=== PATIENT | female | born 1975 | race Two or more races ===

== ENCOUNTER 2018-12-29 09:55 | Outpatient (CLI) | payer OTHER | END 2018-12-29 09:56 | disposition home or self-care (01) | LOC: DI.N 09:55 | DX: Z53.9 Procedure and treatment not carried out, unspecified reason (principal) ==

== ENCOUNTER 2019-01-19 08:46 | Outpatient (CLI) | payer OTHER ==
--- NOTE | 2019-01-25 08:33 | Mammography Report ---
Reason: ROUTINE MAMMO Procedure Date: 01/19/2019 Accession Number: [id number] / [id number] Procedure: [facility] - Screening Mammo w/[facility] CPT Code: Final Report FULL RESULT: EXAM: Screening Mammo w/[facility] DATE: 01/19/2019 9:57 AM CLINICAL HISTORY: Screening encounter. History of late childbearing. TECHNIQUE: (B) - Bilateral CC and MLO views were obtained. COMPARISON: 01/18/2017 through 12/28/2015. PARENCHYMAL PATTERN: (D) - The breast(s) demonstrate(s) heterogeneously dense fibroglandular parenchyma. FINDINGS: There are coarse typically benign calcifications. There are no suspicious masses, calcifications, or areas of distortion. IMPRESSION: Benign findings. BI-RADS category 2. RECOMMENDATION: (ANNUAL) - Recommend routine annual screening mammography. BI-RADS CATEGORY: (2) - Benign Findings. STANDARD QUALIFYING STATEMENTS: 1. This examination was not reviewed with the aid of Computer-Aided Detection (CAD). 2. A negative or benign imaging report should not preclude biopsy if clinically suspicious findings are present. 3. Dense breasts may obscure an underlying neoplasm. 4. This examination was reviewed with the aid of 3D breast imaging (tomosynthesis).
== END 2019-01-19 08:47 | disposition home or self-care (01) ==
LOC: DI 08:46
DX: Z12.31 Encounter for screening mammogram for malignant neoplasm of breast (principal)
CPT/HCPCS: 77063; 77067

== ENCOUNTER 2020-11-14 08:00 | Outpatient (CLI) | payer OTHER ==
[2020-11-14 18:26] LABS: CHOL/HDL RATIO 2.9 (<4.4); CHOLESTEROL 163 mg/dL; HDL CHOLESTEROL 56 mg/dL; LDL CHOLESTEROL,CALCULATED 98 mg/dL; LDL/HDL RATIO 1.8 (<4.4); TRIGLYCERIDES 46 mg/dL; VLDL CHOLESTEROL 9 mg/dL
[2020-11-14 20:36] LABS: ESTIMATED AVERAGE GLUCOSE 111 mg/dL (70-100); HEMOGLOBIN A1c% 5.5 % (4.27-6.07)
== END 2020-11-14 23:59 | disposition home or self-care (01) ==
LOC: LAB.WCP 08:00
PROVIDERS: ATTEND Obstetrics & Gynecology
DX: Z00.00 Encounter for general adult medical examination without abnormal findings (principal)
CPT/HCPCS: 36415; 80061; 83036; 83721

== ENCOUNTER 2020-11-14 12:31 | Outpatient (CLI) | payer OTHER ==
--- NOTE | 2020-11-15 10:10 | Mammography Report ---
BILATERAL DIGITAL SCREENING MAMMOGRAM 3D/2D: 11/14/2020 CLINICAL: Routine screening. Comparison is made to exams dated: 01/19/2019 mammogram - [facility] and 07/22/2017 m ammogram - [facility]. The tissue of both breasts is heterogeneously dense. This may lower t he sensitivity of mammography. No significant masses, calcifications, or other findings are seen in either breast. There has been no significant interval change. IMPRESSION: NEGATIVE There is no mammographic evidence of malignancy. A 1 year screening mammogram is recommended. This exam was interpreted at Station ID: [id number]. NOTE: For mammograms, a report in lay terms will be sent to the patient. Approximately 15% of breast malignancies will not be visualized mammographically. In the management of a palpable breast mass, a negative mammogram must not discourage biopsy of a clinically suspicious lesion. Electronically Signed By: Yoav Ruggiero acr/penrad:11/14/2020 13:42:40 ACR BI-RADS Category 1: Negative 3341F PARENCHYMAL PATTERN: (D) - The breast(s) demonstrate(s) heterogeneously dense fibroglandular chuy ch. BI-RADS CATEGORY: (1) - 1 RECOMMENDATION: (ANNUAL) - Recommend routine annual screening mammography. [id number] 1 year screening LATERALITY: (B)
== END 2020-11-14 12:32 | disposition home or self-care (01) ==
LOC: DI.N 12:31
DX: Z12.31 Encounter for screening mammogram for malignant neoplasm of breast (principal)